=== PATIENT | female | born 1980 | race Caucasian/White ===

== ENCOUNTER 2024-04-05 15:25 | Outpatient (REF) | payer BC, MEDICAID, SELFPAY ==
--- OUTSIDE RECORDS SUMMARY | 2024-04-05 15:27 | XMS_ITS | Continuity of Care Document ---
Author Organization [place] - [facility] Address [address] [place] [address] Care Team Providers Care Supervisor Name Role Phone LISS HIDALGO Dentist Assessment Encounter Date Assessment Date Assessment LastModified by Organization Details LastModified Time 04/01/2024 04/01/2024 HCM - mammogram ordered - due for PAP, will come back in next 2 months for annual exam [email or web address] Not available 04/01/2024 15:31:56 Plan of Treatment Reminders Order Date Submit Date Provider Last Modified By Organization Details Last Modified Time Details Appointments Nurse Visit 2023 02:00P M [facility] Not available Not available Not available Nurse Visit 20 2023 02:00P M [facility] Not available Not available Not available Annual Wellne ss Exam 40 2023 02:00P M TOYIN KATERINA Not available Not available Not available Lab CMP, serum or plasma 2023 024 [facility] (Registration), [address] [place] [address] [place], [address], 04/05/2024 14:55:21 lipid panel, serum 2023 024 [facility] (Registration), [address] [place] [address] [place], [address], 04/05/2024 14:55:21 TSH, serum, reflex free T4 2023 024 [facility] (Registration), [address] [place] [address] [place], [address], 04/05/2024 14:55:21 HbA1c (hemog lobin A1c), blood 2023 024 [facility] (Registration), [address] [place] [address] [place], [address], 04/05/2024 14:55:21 CBC w/ diff 2023 024 [facility] (Registration), [address] [place] [address] [place], [address], 04/05/2024 14:55:21 Referral otolar yngolo gist referr al - Yanick 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 Surgeries None record ed. Imaging MAMMO, screen ing, bilate ral 2023 024 [email or web address] 1 [facility], [address] , [place], [address], 04/01/2024 17:48:20 Medication Orders None record ed. Patient TargetsNo targets recorded. Patient InstructionsNo instructions recorded. 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 Today, exam suggestive of acute bacterial sinus infection, will treat with Augmentin BID X 10 days. Problem Code: J01.90; Problem Code Type: ICD-10; Not Available [facility] 4 05:34:47 Acute pharyngitis Active 023 Problem Code: J02.9; Problem Code Type: ICD-10; Not Available [facility] 4 05:34:47 Streptococcal sore throat Active 023 Problem Code: J02.0; Problem Code Type: ICD-10; Not Available [facility] 4 05:34:47 Enlarged tonsil Active [address], [place] [id number] 4 15:32:24 Obstructive sleep apnea syndrome Active [address], [place] [id number] 4 15:32:47 Obesity Active [address], [address] 4 15:33:00 Seborrheic keratosis Active [address], [place] [id number] 4 15:39:55 Problem Notes None recorded. Procedures Surgical History Date Name Laterality Status Provider Name and Address Organization Details Recorded Time 3 repair of medial collateral ligament of knee joint [facility] 04/01/2024 07:43:26 Imaging Results None recorded. Procedure Notes None recorded. Medical Equipment None Reported. Allergies No known drug allergies Medications Name Sig Start Date Stop Date Status Note LastModified by Organization Details LastModified Time Claritin 10 mg tablet Take 1 tablet as needed by oral route. active takes about 2 times per week Not Available Not Available Not Available amoxicillin 875 mg tablet TAKE ONE TABLET BY MOUTH TWICE A DAY 04/01 completed Not Available Not Available Not Available amoxicillin 875 mg-nitin santos clavulanate 125 mg tablet 1 tablet by mouth twice a day 07/30 completed Not Available Not Available Not Available Fish Oil Take 1 1400 mg capsule daily active Not Available Not Available No t Available multivitami n take 1 tab daily active Not Available Not Available No t Available ashwagandha extract take 1 capsule daily active Not Available Not Available No t Available Vitals Date Recorded Body height Body mass index (BMI) Body weight Body temperature Oxygen saturation Oxygen saturation in Arterial blood by Pulse oximetry Heart rate Systolic blood pressure Diastolic blood pressure Provider Name and Address Organization Details Last Updated DateTime 165.61 cm 42 kg/m2 697485. 18 g 97.9 [degF] 97 % 97 % 79 /min 124 mm[Hg] 86 mm[Hg] YEN BOOGIE RN [facility] 14:58:53 Social History Question Answer Notes LastModified by Organizat ion Details LastModified Time Tobacco Smoking Status Former Smoker [facility] 04/01/2024 14:57:45 What Type Of Diet Are You Following? 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 Gardening, Camping, Reading, Hiking, Swimming, Golf, Being With Family, Camping, Dogs Information not available 04/01/2024 Would You Say That, In General, Your Health Is Poor Information not available 04/01/2024 Women Aged 18-50 - Would You Like To Become In The Next Year? (Female Patients Only) No Information not available 04/01/2024 How Often Does Anyone, Including Family, Physically Hurt You? Never Information not available 04/01/2024 How Often Does Anyone, Including Family, Insult Or Talk Down To You? Never Information no t available 04/01/2024 How Often Does Anyone, Including Family, Threaten You With Harm? Never Information not available 04/01/2024 How Often Does Anyone, Including Family, Scream Or Curse At You? Never Information not available 04/01/2024 Within The Past 12 Months, You Worried That Your Food Would Run Out Before You Got Money To Buy More. Never True Information n ot available 04/01/2024 Within The Past 12 Months, The Food You Bought Just Didn't Last And You Didn't Have Money To Get More. Never True Information n ot available 04/01/2024 How Hard Is It For You To Pay For The Very Basics Like Food, Housing, Medical Care, And Heating? Would You Say It Is: Somewhat Hard Information not available 04/01/2024 In The Past 12 Months, Has Lack Of Reliable Transportation Kept You From Medical Appointments, Meetings, Work Or From Getting Things Needed For Daily Living? No Information not available 04/01/2024 What Is Your Housing Situation Today? I Have Housing. Information not available 04/01/2024 Who Do You Live With? Partner And Son Information not available 04/01/2024 How Often In The Past Year Have You Used Marijuana (including Smoking, Vaping, Dabbing, Or Edibles)? Monthly Or Less Information not available 04/01/2024 How Often In The Past Year Have You Used Prescription Medications That Were Not Prescribed To You? Never Information n ot available 04/01/2024 How Often In The Past Year Have You Taken Your Own Prescription Medication More Than The Way It Was Prescribed Or For Different Reasons Than Its Intended Purpose? Never Information no t available 04/01/2024 How Often In The Past Year Have You Used Other Drugs (for Example, Heroin, Cocaine, Meth, Salvia, Inhalants)? Never Information not available 04/01/2024 Have You Ever Used IV Drugs? No Information not available 04/01/2024 Date Of Most Recent SBINS 03/07/2024 Information not available 04/01/2024 What Was The Date Of Your Most Recent Tobacco Screening? 04/01/2024 Information not available 04/01/2024 How Many Children Do You Have? 1 Information not available 04/01/2024 What Types Of Sporting Activities Do You Participate In? Gardening, Dog Walking Information not available 04/01/2024 Do You Have Any Dietary Restrictions? No Information not available 04/01/2024 Sex: Female Functional Status Question Answer Note LastModified by Organizat ion Details LastModified Time What is your exercise level? Occasional Information not available 04/01/2024 Mental Status None recorded. Family History Relationship Description Onset Age of this Age Resolved Age Notes Sister Irritable bowel syndrome Sister Crohn's disease Mother Hypertensive disorder Paternal Aunt Malignant tumor of breast Father Type 2 diabetes mellitus Father Anxiety disorder Father Hypertensive disorder Medical History No medical history recorded. Gynecological HistoryNo gynecological history recorded. Obstetrics History GPAL:G 0 P 0 0 0 0 Immunizations Vaccine Type Date Status Provider Name and Address Organization Details Recorded Time SARS-COV-2 (COVID-19) vaccine, UNSPECIFIED 12/09/2020 completed JAMIR SORIANO, [facility] 04/01/2024 07:45:22 SARS-COV-2 (COVID-19) vaccine, UNSPECIFIED 01/06/2021 JAMIR Mota, [facility] 04/01/2024 07:45:34 SARS-COV-2 (COVID-19) vaccine, UNSPECIFIED 09/01/2021 completed JAMIR SORIANO, [facility] 04/01/2024 07:45:55 SARS-COV-2 (COVID-19) vaccine, UNSPECIFIED 07/27/2022 JAMIR Mota, [facility] 04/01/2024 07:46:03 influenza, unspecified formulation 07/27/2022 JAMIR Mota, [facility] 04/01/2024 07:46:24 Tdap 11/11/2014 JAMIR Mota, [facility] 04/01/2024 07:46:56 Tdap 03/25/2015 devaughn BOOGIE RN [facility] 04/01/2024 07:47:05 Past Encounters Encounter ID Performer Location Encounter Start Date Encounter Closed Date Diagnosis/Indication Diagnosis SNOMED-CT Code [id number] TOYIN ROBLES MD [facility] [address] [place] [address] 04/01/2024 14:37:18 04/01/2024 16:01:34 Screening mammography 61943158 Enlarged tonsil 69648331 2 Obstructiv e sleep apnea syndrome 99632244 Obesity 834999808 Seborrheic keratosis 394 714857 Health Concerns Section Related Observation LastModified by Organization Detai ls LastModified Time None Recorded Concern Status LastModified by Organization Details LastModified Time None Recorded Payers Encounter Date Sequence Insurance Name Policy Number Policy Mercado Covered Member ID Mercado Member ID Guarantor Name 04/01/2024 1 [facility] (MEDICAID) Elva Parsons [id number] Elva Parsons Notes Date Note Type Note Provider Name and Address Organization Details Recorded Time 04/01/2024 text/html HPI Notes: SH: Robyn ovalle is from [place], grew up in [place]. She moved here with her son and to [place] 4 years ago, she was hoping to be closer to family. 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 She moved back to [place] to be closer to family. 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 She is thinking about home schooling in the Fall. PMH: H/O abnormal PAP, followed by normal PAP Environmental Allergies/Seasonal Laparoscopic knee surgery on [facility] (early ) H/O Lyme Disease - s/p treatment, approx 2012 JANELLE - may be related to enlarged tonsils; not currently treating d/t intolerance of CPAP Family Hx: P. Aunts x 4 - breast cancer M. Grandfather - heart disease M. Aunt - with spontaneous brain aneurysm HPI: She has always had enlarged tonsils and with her pediatricians there was a question about whether to have them removed but elected not to do so as a child. She continues to have enlarged tonsils and has had chronic tonsillitis as a kid. Has been treated recurrently with antibiotics even as an adult. She gets frequent/recurrent irritated and swelling of tonsils. She had a sleep study done in 2016, which was positive for sleep apnea which was thought to be related to enlarged tonsils. She also has a skin lesion on her back she would have looked at. Sleep - pt reports that she wakes up constantly throughout the night. She does have a CPAP machine, but the masks were so uncomfortable for her, and she always takes it off in her sleep. The mask raises her anxiety. She had a sleep study in 2016. TOYIN ROBLES MD [address], [place], [address], [facility]. 04/01/2024 17:51:36 OBGyn Episode No OBEpisode recorded.
--- OUTSIDE RECORDS SUMMARY | 2024-04-05 15:27 | XMS_ITS | Data Portability ---
Author Organization [place] - [facility] Address [address] [place] [address] Care Team Providers Care Oxygen System Tester Name Role Phone LISS HIDALGO Dentist Assessment [...] Last Modified Time Details Appointments Nurse Visit 20 2023 02:00P M [facility] Staff Not available Not available Not available Nurse Visit 2023 02:00P M [facility] Staff Not available Not available Not available Annual Wellne ss Exam 40 2023 02:00P M TOYIN KATERINA Not available Not available Not available Lab CMP, serum or plasma 2023 024 [facility] (Registration), [address] [place] [address] [place], [address], 04/05/2024 14:55:21 lipid panel, serum 2023 024 [facility] (Registration), [address] [place] [address] [place], [address], 04/05/2024 14:55:21 TSH, serum, reflex free T4 2023 024 [facility] ([facility]), [address] [place] [address] [place], [address], 04/05/2024 14:55:21 HbA1c (hemog lobin A1c), blood 2023 024 [facility] (Registration), [address] [place] [address] [place], [address], 04/05/2024 14:55:21 CBC w/ diff 2023 024 [facility] (Registration), [address] [place] [address] [place], [address], 04/05/2024 14:55:21 CMP, serum or plasma 2023 024 [facility] (Registration), [address] [place] [address] [place], [address], 04/05/2024 14:55:21 lipid panel, serum 2023 024 [facility] [address] [place] [address] [place], [address], 04/05/2024 14:55:21 TSH, serum, reflex free T4 2023 024 [facility] [address] [place] [address] [place], [address], 04/05/2024 14:55:21 HbA1c (hemog lobin A1c), blood 2023 024 [facility] (Registration), [address] [place] [address] [place], [address], 04/05/2024 14:55:21 CBC w/ diff 2023 024 [facility] [address] [place] [address] [place], [address], 04/05/2024 14:55:21 Referral otolar yngolo gist referr al - Jacesusana rally enlarg ed tonsil s, impact ing sleep and histor y of chroni c tonsil litis 2023 024 [facility], [address] [place] [address] , [place], [address], 04/02/2024 10:40:42 Procedures None record ed. Surgeries None record ed. Imaging MAMMO, screen ing, bilate ral 2023 024 [email or web address] 1 [facility], [address] , [place], [address], 04/01/2024 17:48:20 Medication Orders None record ed. Patient TargetsNo targets recorded. Patient InstructionsNo instructions recorded. 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 Today, exam suggestive of acute bacterial sinus infection, will treat with Augmentin BID X 10 days. Problem Code: J01.90; Problem Code Type: ICD-10; Not Available [facility] 4 05:34:47 Acute pharyngitis Active 023 Problem Code: J02.9; Problem Code Type: ICD-10; Not Available [facility] 4 05:34:47 Streptococcal sore throat Active 023 Problem Code: J02.0; Problem Code Type: ICD-10; Not Available [facility] 4 05:34:47 Enlarged tonsil Active [address], [facility] [address] , [facility] 4 15:32:24 Obstructive sleep apnea syndrome Active [address], [facility] [id number] [place] [address] 4 15:32:47 Obesity Active MD Liza [address], [facility] [id number] [place] [address] 4 15:33:00 Seborrheic keratosis Active [address], [facility] [id number] [place] [address] 4 15:39:55 Problem Notes None recorded. Procedures Surgical History Date Name Laterality Status Provider Name and Address Organization Details Recorded Time 3 repair of medial collateral ligament of knee joint completed YEN BOOGIE RN [facility], [facility] 04/01/2024 07:43:26 Imaging Results None recorded. Procedure [...] Available Not Available Not Available amoxicillin 875 mg-potassiu m clavulanate 125 mg tablet 1 tablet by [...] and Address Organization Details Last Updated DateTime 07/15/202 4 165.61 cm 42 kg/m2 322129. 18 g 97.9 [degF] 97 % 97 % 79 /min 124 mm[Hg] 86 mm[Hg] YEN BOOGIE RN [facility] 14:58:53 Social History Question Answer Notes LastModified by Organizat ion Details LastModified Time Tobacco Smoking Status Former Smoker YEN BOOGIE RN [facility], [facility] 04/01/2024 14:57:45 What Type Of Diet Are You Following? 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 not available 03/29/2024 What Do You [...] Recorded Time SARS-COV-2 (COVID-19) vaccine, UNSPECIFIED 12/09/2020 JAMIR Mota, [facility] 04/01/2024 07:45:22 SARS-COV-2 (COVID-19) vaccine, UNSPECIFIED 01/06/2021 completed JAMIR SORIANO, [facility] 04/01/2024 07:45:34 SARS-COV-2 (COVID-19) vaccine, UNSPECIFIED 09/01/2021 completed JAMIR SORIANO, [facility] 04/01/2024 07:45:55 SARS-COV-2 (COVID-19) vaccine, UNSPECIFIED 07/27/2022 completed JAMIR SORIANO, [facility] 04/01/2024 07:46:03 influenza, unspecified formulation 07/27/2022 completed JAMIR SORIANO, [facility] 04/01/2024 07:46:24 Tdap 11/11/2014 completed JAMIR SORIANO, [facility] 04/01/2024 07:46:56 Tdap 03/25/2015 completed JAMIR SORIANO, [facility] 04/01/2024 07:47:05 Past Encounters Encounter ID Performer Location Encounter Start Date Encounter Closed Date Diagnosis/Indication Diagnosis SNOMED-CT Code [id number] TOYIN ROBLES MD [address] [address] 04/01/2024 14:37:18 04/01/2024 16:01:34 Screening mammography 90625265 Enlarged tonsil 27588258 2 Obstructiv e sleep apnea syndrome 66771677 Obesity 676350518 Seborrheic keratosis 394 033832 [id number] Sunshine Lugo LPN [address] [address] 04/05/2024 14:28:07 04/05/2024 14:53:12 Obesity 064185392 Health Concerns Section Related Observation LastModified by Organization Detai ls LastModified Time None Recorded Concern Status LastModified by Organization Details LastModified Time None Recorded Advance Directives Directive None Recorded Payers Encounter Date Sequence Insurance Name Policy Number Policy Mercado Covered Member ID Mercado Member ID Guarantor Name 04/01/2024 1 [facility] (MEDICAID) Elva Parsons [id number] Elva Parsons 04/05/2024 1 [facility] (MEDICAID) Elva Parsons [id number] Elva Parsons Notes Date Note Type Note Provider Name and Address Organization Details Recorded Time 04/01/2024 text/html HPI Notes: SH: Robyn ovalle is from [place], grew up in [place]. She moved here with her son and to [place] 4 years ago, she was hoping to be closer to family. 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 She moved back to [place] to be closer to family. 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 She is thinking about home schooling in the Fall. PMH: H/O abnormal PAP, followed by normal PAP Environmental Allergies/Seasonal Laparoscopic knee surgery on [facility] (early ) H/O Lyme Disease - [...] She had a sleep study done in 2015, which was positive for sleep apnea which [...] 2016. TOYIN ROBLES MD [address], [place], [address], [facility]. 04/01/2024 17:51:36 OBGyn Episode No OBEpisode recorded.
--- OUTSIDE RECORDS SUMMARY | 2024-04-05 15:27 | XMS_ITS | Continuity of Care Document ---
Author Organization [facility] Address [address] [place] [address] Care Team Providers Care Vp Data Name Role Phone [place]Y [place] Dentist Assessment No assessment recorded. Plan of Treatment Reminders Order Date Submit Date Provider Last Modified By Organization Details Last Modified Time Details Appointments Nurse Visit 20 2023 02:00P M [place] Nursing Staff Not available Not available Not available Nurse Visit 20 2023 02:00P M [place] Nursing Staff Not available Not available Not available Annual Wellness Exam 40 2023 02:00P M TOYIN KATERINA Not available Not available Not available Lab CMP, serum or plasma 2023 024 [facility] (Registration ), [address] [place] [address] [place], [address], 04/05/2024 14:55:21 lipid panel, serum 2023 024 [facility] (Registration ), [address] [place] [address] [place], [address], 04/05/2024 14:55:21 TSH, serum, reflex free T4 2023 024 [facility] (Registration ), [address] [place] [address] [place], [address], 04/05/2024 14:55:21 HbA1c (hemoglo bin A1c), blood 2023 024 [facility] (Registration ), [address] [place], [address], 04/05/2024 14:55:21 CBC w/ diff 2023 024 [facility] (Registration ), [address] [place], [address], 04/05/2024 14:55:21 Referral None recorded . Procedures None recorded . Surgeries None recorded . Imaging None recorded . Medication Orders None recorded . Patient TargetsNo targets recorded. Patient InstructionsNo instructions recorded. 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 Today, exam suggestive of acute bacterial sinus infection, will treat with Augmentin BID X 10 days. Problem Code: J01.90; Problem Code Type: ICD-10; Not Available [facility] 4 05:34:47 Acute pharyngitis Active 023 Problem Code: J02.9; Problem Code Type: ICD-10; Not Available [facility] 4 05:34:47 Streptococcal sore throat Active 023 Problem Code: J02.0; Problem Code Type: ICD-10; Not Available [facility] hospital 4 05:34:47 Enlarged tonsil Active [address], [place], [address] , [facility]. 4 15:32:24 Obstructive sleep apnea syndrome Active [address], [place], [address] , [facility] 4 15:32:47 Obesity Active [address], [facility] [address] , [facility] 4 15:33:00 Seborrheic keratosis Active [address], [facility] [address] , [facility] 4 15:39:55 Problem Notes None recorded. Procedures Surgical History Date Name Laterality Status Provider Name and Address Organization Details Recorded Time 3 repair of medial collateral ligament of knee joint completed JAMIR SORIANO, [facility] 04/01/2024 07:43:26 Imaging Results None recorded. Procedure [...] Available Not Available No t Available Vitals None Recorded Social History Question Answer Notes LastModified by Organizat ion Details LastModified Time Tobacco Smoking Status Former Smoker JAMIR SORIANO, [facility] 04/01/2024 14:57:45 What Type Of Diet Are You Following? 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 [employer] Information not available 03/29/2024 What Do You [...] Time SARS-COV-2 (COVID-19) vaccine, UNSPECIFIED 12/09/2020 completed YEN BOOGIE RN [facility], [facility] 04/01/2024 07:45:22 SARS-COV-2 (COVID-19) vaccine, UNSPECIFIED 01/06/2021 completed YEN BOOGIE RN [facility], [facility] 04/01/2024 07:45:34 SARS-COV-2 (COVID-19) vaccine, UNSPECIFIED 09/01/2021 completed YEN BOOGIE RN null, [facility] 04/01/2024 07:45:55 SARS-COV-2 (COVID-19) vaccine, UNSPECIFIED 07/27/2022 completed YEN BOOGIE RN null, [facility] 04/01/2024 07:46:03 influenza, unspecified formulation 07/27/2022 completed JAMIR SORIANO, [facility] 04/01/2024 07:46:24 Tdap 11/11/2014 completed YEN BOOGIE RN null, [facility] 04/01/2024 07:46:56 Tdap 03/25/2015 completed JAMIR SORIANO, [facility] 04/01/2024 07:47:05 Past Encounters Encounter ID Performer Location Encounter Start Date Encounter Closed Date Diagnosis/Indication Diagnosis SNOMED-CT Code [id number] TOYIN ROBLES MD [address] [address] 04/01/2024 14:37:18 04/01/2024 16:01:34 Screening mammography [id number] Enlarged tonsil 10044663 2 Obstructiv e sleep apnea syndrome 97270074 Obesity 542463653 Seborrheic keratosis 394 [id number] Sunshine Lugo LPN [address] [address] 04/05/2024 14:28:07 04/05/2024 14:53:12 Obesity 399125075 Health Concerns Section Related Observation LastModified by Organization Detai ls LastModified Time None Recorded Concern Status LastModified by Organization Details LastModified Time None Recorded Payers Encounter Date Sequence Insurance Name Policy Number Policy Mercado Covered Member ID Mercado Member ID Guarantor Name 04/05/2024 1 [facility] (MEDICAID) Elva Parsons [id number] Elva Parsons OBGyn Episode No OBEpisode recorded.
[2024-04-05 21:13] LABS: Abs Immature Grans 0.02 10^3/uL (0.0-0.06); Absolute Basophil Count 0.03 10^3/uL (0.0-0.2); Absolute Eosinophil Count 0.16 10^3/uL (0.0-0.7); Absolute Lymphocyte Count 2.74 10^3/uL (1.2-3.4); Absolute Neutrophil Count 4.36 10^3/uL (1.2-6.7); Basophils % 0.4 %; HCT 38.8 % (36.0-46.0); HGB 12.6 g/dL (11.2-15.7); Immature Grans % 0.3 %; Lymphocytes % 34.6 %; MCH 27.8 pg (27.0-33.0); MCHC 32.5 % (32.0-36.0); MCV 86 fL (80-95); MPV 10.5 fL (8.0-11.0); Monocytes % 7.6 %; Neutrophils % 55.1 %; Platelet Count 225 10^3/uL (130-400); RBC 4.54 10^6/uL (3.93-5.22); RDW-SD 43.2 fL; WBC 7.91 10^3/uL (4.4-10.8)
[2024-04-05 21:32] LABS: ALT 21 U/L (14-59); AST 18 U/L (15-37); Albumin 3.5 g/dL (3.4-5.0); Alkaline Phosphatase 79 U/L (46-116); Anion Gap 9.9 mmol/L (3-11); BUN 16 mg/dL (7-18); CO2 25.1 mmol/L (21.0-32.0); CREATININE 0.9 mg/dL (0.55-1.02); Calculated LDL 80 mg/dL (<100); Chloride 104 mmol/L (98-107); Cholesterol 157 mg/dL (<200); Estimated GFR 82.37 (mL/min/1.73m2); Glucose 98 mg/dL (74-106); HDL Cholesterol 56 mg/dL (40-60); Potassium 4.6 mmol/L (3.5-5.1); Sodium 139 mmol/L (136-145); TSH (W/Ref FT4) 3.32 uIU/mL (0.36-3.74); Total Protein 7.8 g/dL (6.4-8.2); Triglyceride 106 mg/dL (<150)
== END 2024-04-05 15:26 | disposition home or self-care (01) ==
LOC: NCHCN 15:25
PROVIDERS: PCP Family Medicine; Visit Provider Family Medicine
DX: E66.9 Obesity, unspecified (principal)
CPT/HCPCS: 80053; 80061; 83036; 84443; 85025

== ENCOUNTER 2024-08-01 21:24 | Outpatient (REF) | payer MEDICAID, SELFPAY ==
--- NOTE | 2024-08-01 14:30 | PAPFT_PTH ---
PATIENT: Elva Parsons LOC: [facility]#:[id number] AGE/SX: 44/F ROOM: RE08/01/[address]: Toyin Robles : 1980 BED: DIS: 08/01/2024 SPEC #: [id number] RECD: 08/02/24 13:41 STATUS: MAXIME REQ #: [id number] JUAN: 08/01/24 14:[address]: Toyin Robles DEPT: [facility] Cytology RECD BY: Hedy Ayala Tissues: 1 - CX/ENDOCX FOR PAP SMEARS Procedures: PAP THIN PREP/[facility] Screening HPV DNA PROBE Comments: [id number] (HPV 16 & 18/45)
== END 2024-08-01 21:25 | disposition home or self-care (01) ==
LOC: NCHCN 21:24
PROVIDERS: PCP Family Medicine; Visit Provider Family Medicine
DX: Z12.4 Encounter for screening for malignant neoplasm of cervix (principal)
CPT/HCPCS: 88142; 87624

== ENCOUNTER 2024-10-15 07:22 | Day surgery (SDC) | payer MEDICAID, SELFPAY ==
[2024-10-15] VITALS (15 sets, daily range): BP systolic 103–127; BP diastolic 15–83; PULSE 71–83; RESP 15–20; TEMP 36.1–36.6; O2SAT 92–100; BMI 40.3
[2024-10-15] MEDS: Lactated Ringers 1,000 ML 80 ML IV (08:09)
--- NOTE | 2024-10-15 08:42 | W.PM.DSUDISC ---
Date of service: 10/15/24 Discharge Plan Disposition Patient Disposition: Home Condition: Good Discharge Details Reason For Visit: Tonsillectomy Attending Provider: Evans Alegre Primary Care Provider: Toyin Robles Home Meds and New Rx's Prescriptions: No Action bupropion HCl [Wellbutrin XL] 150 mg tablet extended release 24 hr 150 mg PO DAILY Discharge Instructions Additional Instructions: My cell phone number is [phone]. Please call with any questions or concerns. If you are unable to reach me and you feel it is an emergency, please call 911 or proceed to the emergency room. Stand Alone Forms: ENT- T&A Instr. Codey Referrals: Evans lAegre MD [ [facility] STAFF PHYSICIAN] - (1 month, please call for appointment prior to patient's departure) Discharge Orders Discharge Orders: Discharge Order (Routine); Ordered 10/15/24 Ordered By: Evans Alegre
--- NOTE | 2024-10-15 08:51 | W.ANESPRE ---
General Info Date of Service Date Performed: 10/15/24 Height: 5 ft 6 in Weight: 113.398 kg Body Mass Index (BMI): 40.3 Surgical Procedure: Operation Date: 10/15/24 08:55 Proposed Procedure Side Surgeon p Tonsillectomy & Possible Adenoidectomy Evans Alegre MD Meds Allergies and Home Medications Allergies Allergy/AdvReac Type Severity Reaction Status Date / Time cat dander Allergy Intermediate watery Verified 10/15/24 07:43 eyes, runny nose, wheezing, itching horse dander Allergy Intermediate watery Verified 10/15/24 07:43 eyes, runny nose, wheezing, itching Home Medication ?Medication ?Instructions ?Recorded bupropion HCl 150 mg 24 hr tablet, 150 mg PO DAILY Seasonal 10/11/24 extended release (Wellbutrin XL) Depression & Anxiety Current Visit Medications: Current Medications Generic Name Dose Route Start Last Admin Trade Name Freq PRN Reason Stop Dose Admin Acetaminophen 320 - 650 mg 10/15/24 08:41 Acetaminophen Solution 650 Mg/20.3 Ml Cup PO 11/14/24 08:40 Q4H PRN PRN Cefazolin Sodium/Dextrose 2 gm in 50 mls @ 100 mls/hr 10/15/24 06:00 Ancef Duplex IVPB 10/15/24 23:59 PREOP JB Tranexamic Acid/Sodium Chloride 1,000 mg in 100 mls @ 600 mls/hr 10/15/24 06:00 IVPB 10/15/24 23:59 PREOP JB Ringer's Solution 1,000 mls @ 80 mls/hr 10/15/24 08:00 10/15/24 08:09 IV 11/14/24 07:59 80 mls/hr INFUSION JB Administration IV Miscellaneous Supplies 1 each 10/15/24 06:00 Iv Access IV 10/15/24 23:59 DIRECTED JB Ibuprofen 600 mg 10/15/24 08:41 Ibuprofen 600 Mg Tab PO 11/14/24 08:40 Q6H PRN PRN Sodium Chloride 0 ml 10/15/24 06:00 Normal Saline Flush 10 Ml Syr IV 10/15/24 23:59 PRN PRN Sodium Chloride 0 ml 10/15/24 06:00 Normal Saline 10 Ml Vial IJ 10/15/24 23:59 DIRECTED PRN Sterile Water 0 ml 10/15/24 06:00 Water,Injection,Sterile 10 Ml Vial IJ 10/15/24 23:59 DIRECTED PRN PFSH Active Problems Active Problems: Problem Status Onset Code Tonsillar hypertrophy Acute J35.1 Tonsillolith Acute J35.8 Sleep apnea Acute G47.30 Surgical History Surgical History Hx of wisdom tooth extraction Hx of knee surgery MCL tear Tobacco Smoking/Tobacco Use Status: Former Tobacco Use Alcohol Alcohol Intake: current Alcohol intake frequency: a few times a month Substance Use Substance use: Never Substance use type: does not use Vital Signs and Lab Results Vital Signs Most Recent Vital Signs in EMR: Most Recent Vital Signs Temp Pulse Resp BP Pulse Ox 36.6 C 72 18 126/78 100 10/15/24 07:44 10/15/24 07:44 10/15/24 07:44 10/15/24 07:44 10/15/24 07:44 Point of Care Results Point of Care Results: POC- Test(urine) Negative 10/15/24 07:48 Lab Results Blood Type / Crossmatch: No Data to Display Complete Blood Count: No Data to Display Complete Metabolic Panel: No Data to Display Liver Function Panel: No Data to Display Coagulation Panel: No Data to Display Cardiac Panel: No Data to Display Arterial Blood Gas: No Data to Display Venous Blood Gas: No Data to Display Pancreas Panel: No Data to Display Thyroid Panel: No Data to Display Infectious Disease: No Data to Display Blood Cultures: No Data to Display Toxicology Panel: No Data to Display Panel: No Data to Display Anesthesia Assessment and Plan Anesthesia History Personal History: No History of Anesthesia Complications Family History: No Family History of Anesthesia Complications Exercise Tolerance Exercise Tolerance: Metabolic Equivalents>4 Pertinent Negatives Pertinent Negatives: No Symptoms of GERD, No Major Cardiovascular Symptoms or Complaints and No Major Pulmonary Symptoms or Complaints Cardiac & Pulmonary Exam Cardiac Exam: Normal S1/S2 Heart Sounds Pulmonary Exam: Clear Bilateral Breath Sounds Implantable Cardiac Device Does patient have a Pacemaker or an ICD?: No Airway Exam Known Difficult Airway: No Mallampati Class: 1 Mouth Opening: Normal (> 3cm) Thyromental Distance: Greater than 3 cm Neck Range of Motion: Full ROM Neck Circumference: Normal Teeth Condition: Normal Dentition ASA Classification ASA Score: ASA 3 Emergency Case?: No NPO Status NPO Status: NPO Clears >2 hours, Solids >8 hours Status Status: Negative HCG Anesthesia Plan Resuscitation Status: Full Code Anesthesia Technique: General Anesthesia Airway Planned: Endotracheal Tube Monitors Used: Standard Monitors and SedLine
--- NOTE | 2024-10-15 08:52 | ROE_ITS ---
Operative Note Operative Note PRE-OP DIAGNOSIS: Chronic tonsillitis POST-OP DIAGNOSIS: same PROCEDURE: Tonsillectomy SURGEON: Evans Alegre ANESTHESIA TYPE: General LMA/ETT Refer to Anesthesia Record ESTIMATED BLOOD LOSS: 50 PATHOLOGY: other (Tonsils) COMPLICATIONS: None Indications: Patient with chronic tonsillitis. Options were explained to the patient regarding further management. Risks were reviewed again. Risks of narcotics were reviewed in detail. The importance of using her CPAP afterwards was also reviewed. She wished to proceed. H&P was reviewed. There have been no changes. All questions were answered prior to surgery. Findings: 3+ tonsils with copious cryptic debris, significant scar tissue, no significant residual adenoid, Procedure Description: After obtaining adequate level of general endotracheal anesthesia the patient was positioned in supine position and prepped and draped in appropriate fashion. A Ojhnny Rodri mouthgag was carefully introduced into the oral cavity and opened revealed a soft and hard palate which were examined revealing no evidence of an occult cleft palate. Adenoids were examined revealing no significant residual adenoid. Each tonsil was pulled medially and posteriorly and 0.5% Marcaine with 1/100,000 epinephrine was injected in the submucosal plane around each tonsil. Following this, a 12 blade was used to incise mucosa along superior, anterior, and posterior edges of the tonsil and then a Janee elevator used to disarticulate the tonsil from the superior tonsillar fossa. The tonsil was then stripped down to the inferior pole using a Sanders blade and amputated from the tonsillar fossa using a tonsillar snare. Electrocautery suction tip catheter set on 15 W coagulation was used to achieve hemostasis within the tonsillar beds. Following this, the mouthgag was relaxed and reopened revealing no further bleeding. The Valsalva failed to induce any further bleeding. The Johnny Rodri mouthgag was re laxed and removed and the patient was awakened and extubated by anesthesia and taken the recovery room in stable condition. I was present throughout the entire case. Date of Procedure: 10/15/24
[2024-10-15] MEDS: ceFAZolin 2 GM/50 ML BAG IVPB (09:11)
[2024-10-15] MEDS: TRANEXAMIC ACID/SOD. CHL. 1,000 MG/100 ML BAG 600 MG IVPB (09:17)
[2024-10-15] MEDS: Bupivacaine 0.5% Pres-Free W/EPI 10 ML VIAL (09:33)
--- NOTE | 2024-10-15 09:36 | TONSIL_PTH ---
PATIENT: Elva Parsons LOC: [facility] U#:[id number] AGE/SX: 44/F ROOM: RE10/15/[address]: Evans Alegre MD : 1980 BED: DIS: 10/15/2024 SPEC #: [id number] RECD: 10/15/24 12:29 STATUS: MAXIME REQ #: [id number] JUAN: 10/15/24 09:[address]: Evans Alegre DEPT: Surgical Specimen RECD BY: Hedy Ayala ENTERED: 10/15/24 12:31 SP TYPE: TONSIL OTHR DR: Toyin Robles Tissues: 1 - TONSIL AGE 17 & OVER 2 - TONSIL AGE 17 & OVER Procedures: GROSS AND MICRO LEVEL 3 Comments: [id number]
--- NOTE | 2024-10-15 11:09 | W.ANESPOSTOP ---
Postoperative Evaluation Date, Time and Location Date Performed: 10/15/24 Time Performed: 11:05 Patient Location: Day Surgery Unit Vital Signs Most Recent Imported Vital Signs: Most Recent Vital Signs Temp Pulse Resp BP Pulse Ox 36.3 C L 71 16 118/75 97 10/15/24 11:06 10/15/24 11:06 10/15/24 11:06 10/15/24 11:06 10/15/24 11:06 Pain Score Most Recent Pain Score: Most Recent Pain Score Pain Level 3 10/15/24 11:06 Assessment Mental Status: Awake (Alert & Oriented to Patient Baseline) Airway and Respiratory Function: Patent airway with normal (patient baseline) respiratory exam Cardiovascular Function: Hemodynamically Stable Hydration Status: Adequately Hydrated Nausea & Vomiting: No Nausea or Vomiting Pain: Pain is tolerable per patient Peripheral Nerve Block: Patient did not receive a nerve block
== END 2024-10-15 11:20 | disposition home or self-care (01) ==
PROVIDERS: PCP Family Medicine; Visit Provider Otolaryngology
PROC: (CPT 42826; principal; 2024-10-15 08:45)
DX: J35.1 Hypertrophy of tonsils (principal); J35.8 Other chronic diseases of tonsils and adenoids
CPT/HCPCS: 42826; 81025; 88304; J0131; J0690; J1100; J2003; J2250; J2405; J2704; J3010